=== PATIENT | female | born 1960 | race African-American/Black ===

== ENCOUNTER 2020-02-20 16:22 | Emergency (ER) | payer OTHER ==
[~2020-02-20] VITALS: Ht 152.4 cm; Wt 44.5 kg
--- NOTE | ~2020-02-20 | EMS ---
[address] [address] EMS Patient Care Report Name: GE ARNOLD Room #: [facility]..#: [id number] Admission: Attend Phys: Discharge: Date of : 62 Report #: [id number] THIS REPORT FOR: //name// Report Transmitted: 02/20/2020 17:08 EMS Care Summary [place], [place]/[facility] Incident [id number] @ 02/20/2020 15:52 Incident Location [address] [place], [place] [id number] Patient GE ARNOLD Female, 59 Years 1960 Patient Address [address] [place], [place] [id number] Patient History Chronic Obstructive Pulmonary Disease (COPD),Neuropathy,Hip Replacement, Patient Allergies Codeine,Lisinopril, Patient Medications Unknown, Chief Complaint CP/ FLU SYMPTOMS Disposition Transported No Lights/[place] Dispatch Reason Chest Pain (Non-Traumatic) Transported To [facility] Narrative RESPONDED TO CHEST PAIN AT APARTMENT. UPON ARRIVAL PT MET EMS AT FRONT DOOR. PT IS ALERT AND ORIENTED BUT GRIPPING HER CHEST. PT REPORTS CHEST PAIN WHEN [address] [address] EMS Patient Care Report Name: GE ARNOLD Room #: [facility]#: [id number] Admission: Attend Phys: Discharge: Date of : 62 Report #: [id number] BREATHING FOR THE LAST 2 DAYS ALONG WITH COUGH, N/V AND CHEST WALL PAIN WHEN TOUCHED. PT DENIES FEVER. PT WALKED TO COT. VITALS, 3 LEAD, AND 12 LEAD OBTAINED. 12 LEAD REVEALED SINUS RHYTHM WITH NO ELEVATION/ DEPRESSION. PT TRANSPORTED TO [facility] DESPITE BEING INFORMED OF HIGH VOLUME STATUS. PT WALKS TO ISOLATION ROOM AND REPORT GIVEN TO NURSE. Initial Vitals @16:07P: 92,R: 33,CO: 4,SpO2: 100, @16:02P: 97,R: 32,SpO2: 99, @16:05P: 93,R: 61,SpO2: 100, @16:01P: 96,R: 43,CO: 3,SpO2: 98, @16:02P: 95,R: 33,SpO2: 98,[place] Suspected: false @16:04P: 99,R: 31,SpO2: 98, @16:03P: 94,R: 22,BP: 149/87,Pain: 8/10,GCS: 15,SpO2: 99,Revised Trauma: 12, @16:01P: 97,R: 34,BP: 155/97,GCS: 15,CO: 4,SpO2: 99,Revised Trauma: 11, @16:08P: 89,R: 60, Assessments @15:56MENTAL:Time Oriented,Person Oriented,Place Oriented,Event Oriented,SKIN:HEENT:Head/Face: No Abnormalities,Neck/Airway: No Abnormalities,LUNG SOUNDS:General: Vomiting,General: Nausea,Left Upper: No Abnormalities,Right Upper: No Abnormalities,Left Lower: No Abnormalities,Right Lower: No Abnormalities,ABDOMEN:General: Vomiting,General: Nausea,Left Upper: No Abnormalities,Right Upper: No Abnormalities,Left Lower: No Abnormalities,Right Lower: No Abnormalities,PELVIS//GI:No Abnormalities,EXTREMITIES:Left Arm: No Abnormalities,Right Arm: No Abnormalities,Left Leg: No Abnormalities,Right Leg: No Abnormalities,PULSE:NEURO:No Abnormalities,@16:02MENTAL:Event Oriented,Time Oriented,Place Oriented,Person Oriented,SKIN:No Abnormalities,HEENT:Head/Face: No Abnormalities,Eyes: No Abnormalities,Neck/Airway: No Abnormalities,LUNG SOUNDS:General: No Abnormalities,Left Upper: No Abnormalities,Right Upper: No Abnormalities,Left Lower: No Abnormalities,Right Lower: No Abnormalities,ABDOMEN:General: No Abnormalities,Left Upper: No Abnormalities,Right Upper: No Abnormalities,Left Lower: No Abnormalities,Right Lower: No Abnormalities,PELVIS//GI:No Abnormalities,EXTREMITIES:Left Arm: No Abnormalities,Right Arm: No Abnormalities,Left Leg: No Abnormalities,Right Leg: No Abnormalities,PULSE:NEURO:No Abnormalities, Impression Chest pain on breathing Procedures @16:0212-Lead ECGResponse: UnchangedSucceeded@15:56ALS AssessmentResponse: UnchangedSucceeded Timeline [address] [address] EMS Patient Care Report Name: EG ARNOLD Room #: [facility].#: [id number] Admission: Attend Phys: Discharge: Date of : 62 Report #: [id number] 15:51,Call Received 15:51,Dispatch Notified 15:52,Dispatched 15:53,En Route 15:55,On Scene 15:56,At Patient 15:56,ALS Assessment,Response: UnchangedSucceeded, 16:01,BP: / M,PULSE: 96,RR: 43 R,SPO2: 98 Ox,ETCO2: ,BG: ,PAIN: ,GCS: , 16:01,BP: 155/97 M,PULSE: 97,RR: 34 R,SPO2: 99 Ox,ETCO2: ,BG: ,PAIN: ,GCS: 15, 16:02,12-Lead ECG,Response: UnchangedSucceeded, 16:02,BP: / M,PULSE: 95,RR: 33 R,SPO2: 98 Ox,ETCO2: ,BG: ,PAIN: ,GCS: , 16:02,BP: / M,PULSE: 97,RR: 32 R,SPO2: 99 Ox,ETCO2: ,BG: ,PAIN: ,GCS: , 16:03,BP: 149/87 M,PULSE: 94,RR: 22 R,SPO2: 99 Ox,ETCO2: ,BG: ,PAIN: 8,GCS: 15, 16:04,BP: / M,PULSE: 99,RR: 31 R,SPO2: 98 Ox,ETCO2: ,BG: ,PAIN: ,GCS: , 16:04,Depart Scene 16:05,BP: / M,PULSE: 93,RR: 61 R,SPO2: 100 Ox,ETCO2: ,BG: ,PAIN: ,GCS: , 16:07,BP: / M,PULSE: 92,RR: 33 R,SPO2: 100 Ox,ETCO2: ,BG: ,PAIN: ,GCS: , 16:08,BP: / M,PULSE: 89,RR: 60 R,SPO2: Ox,ETCO2: ,BG: ,PAIN: ,GCS: , 16:19,At Destination 16:32,Call Closed Disclaimer v1.1 Copyright 2020 [employer] This EMS Care Summary contains data elements from the applicable legal record (which may be displayed differently). It is designed to provide pertinent information for the following purposes: continuity of care, clinical quality, and state data reporting. The complete legal record is available to ED staff and administrators of the receiving hospital in [employer]'s Patient Tracker. All data is provided "as is."
[2020-02-20 18:03] LABS: ABSOLUTE NEUTROPHILS 2.4 thou/uL (1.4-8.2); BASOPHILS 0.6 % (0.0-2.0); EOSINOPHILS 1.7 % (0.0-3.0); HEMATOCRIT 39.5 % (37.0-47.0); HEMOGLOBIN 13.6 gm/dL (12.0-15.0); MCH 30.5 pg (26.0-34.0); MCHC 34.5 g/dL (28.0-37.0); MCV 88.6 fL (80.0-100.0); MONOCYTES 10.9 % (1.0-8.0); PLATELET COUNT 457 thou/uL (150-400); POLYS 36.8 % (36.0-66.0); RBC 4.46 mil/uL (4.20-5.00); RDW 17.2 % (10.5-14.5); WBC 6.6 thou/uL (4.0-11.0)
[2020-02-20 18:18] LABS: ALBUMIN 3.2 g/dL (3.4-5.0); ANION GAP 7 mmol/L (7-16); BUN 3 mg/dL (7-18); CHLORIDE 105 mmol/L (98-107); CO2 33 mmol/L (21-32); CREATININE 0.7 mg/dL (0.6-1.0); DIRECT BILIRUBIN < 0.1 mg/dL (<0.1-0.2); GLUCOSE 89 mg/dL (74-106); SGOT 24 U/L (15-37); SGPT 14 U/L (30-65); SODIUM 145 mmol/L (136-145); TOTAL BILIRUBIN 0.2 mg/dL (0.2-1.0); TOTAL PROTEIN 6.6 g/dL (6.4-8.2); TROPONIN-I <0.06 ng/mL (<0.06)
[2020-02-20 18:21] LABS: POTASSIUM 2.9 mmol/L (3.5-5.1)
[2020-02-20] MEDS ORDERED: MOBIC15 MG PO (19:12)
[2020-02-20] MEDS ORDERED: ZOFRAN ODT4 MG PO (19:12)
[2020-02-20 19:24] VITALS: BP 117/72
--- NOTE | 2020-02-21 07:34 | EKG ---
[facility] [place] [place] [address] ELECTROCARDIOGRAM REPORT Name: GE ARNOLD Room #: [facility]#: [id number] Admission: 02/20/20 Attend Phys: Discharge: 02/20/20 Date of : 62 Report #: [id number] THIS REPORT FOR: cc: DAYAMI Castorena family physician/PCP DAYAMI Castorena family physician/PCP Darrell Cisneros MD [facility] ~ THIS REPORT FOR: //name// [facility] ED Test Date: 2020-02-20 Test Time: 17:13:09 Pat Name: GE ARNOLD Department: Room: Gender: F [employer]: Melina : 1960 Requested By: Brionna Rosario Order Number: [id number] MD: Darrell Cisneros Measurements Intervals [place] Rate: 80 P: 82 PA: 141 QRS: 79 QRSD: 90 T: 74 QT: 422 QTc: 487 Interpretive Statements Sinus rhythm Borderline T abnormalities, anterior leads Borderline prolonged QT interval No previous ECG available for comparison Electronically Signed On 02-21-2020 7:34:29 CDT by Darrell Cisneros [email or web address] <ELECTRONICALLY SIGNED> By: Darrell Cisneros MD, FACC 02/21/20 0734 12 12 Darrell Cisneros MD, [facility] /EPI
== END 2020-02-20 19:24 | disposition home or self-care (01) ==
LOC: ER 16:22
PROVIDERS: Emergency Medicine
DX: R07.9 Chest pain, unspecified (principal); E87.6 Hypokalemia; R11.2 Nausea with vomiting, unspecified; Z88.5 Allergy status to narcotic agent; Z88.8 Allergy status to other drugs, medicaments and biological substances; Z20.828 Contact with and (suspected) exposure to other viral communicable diseases